=== PATIENT | female | born 1965 | race Hispanic/Latino ===

== ENCOUNTER 2017-11-20 12:24 | Emergency (ER) | payer SELFPAY ==
[2017-11-20] MEDS ORDERED: EPINEPHrine 1 MG/10 ML SYR IV ONE (12:25)
[2017-11-20] MEDS ORDERED: NA CHLORIDE 0.9% 2,000 ML ONE (12:25)
[2017-11-20] MEDS ORDERED: NA CHLORIDE 0.9% 1,000 ML ONE (12:29)
[2017-11-20] MEDS ORDERED: ROCURONIUM 50 MG/5 ML VIAL IV ONE (12:29)
[2017-11-20 12:40] LABS: Absolute Lymphocytes (CBC) 7.2 K/uL (0.7-4.9); Absolute Monocytes 0.4 K/uL (0.1-1.3); Absolute Neutrophil 3.2 K/uL (1.8-8.0); Basophils % 0.9 % (0-1.3); Eosinophils % 0.9 % (0-4.4); Hematocrit 33.8 % (36.0-45.0); Lymphocytes % 65.1 % (15.3-44.8); MCH 22.7 pg (27.0-35.0); MCV 82.8 fL (80-100); MPV 8.7 fL (7.6-11.3); RBC Red Blood Cell Count 4.08 M/uL (3.86-4.86)
[2017-11-20 12:50] LABS: Protime INR 1.27
[2017-11-20] MEDS ORDERED: PROPOFOL IV ONE (13:02)
[2017-11-20 13:33] LABS: Anisocytosis 1+; Blood Morphology Comment NOTED (NOT SEEN); Burr Cells 1+; Platelet Estimate DECR
[2017-11-20 13:34] LABS: Rouleau NOTED; Sodium Level 150 mmol/L (136-145)
[2017-11-20 13:38] LABS: BUN Blood Urea Nitrogen 8 mg/dL (7-18); Bicarbonate 19 mmol/L (21-32); Glucose Level 266 mg/dL (74-106)
[2017-11-20 13:40] LABS: Alkaline Phosphatase 91 U/L (45-117); Bilirubin Direct < 0.1 mg/dL (0-0.2); Bilirubin Total 0.2 mg/dL (0.2-1.0)
[2017-11-20 13:42] LABS: Albumin 2.4 g/dL (3.4-5.0); CKMB Creatine Kinase MB 5.2 ng/mL (0.3-3.6); Creatine Phosphokinase 422 U/L (26-192); Magnesium 3.5 mg/dL (1.8-2.4); NT PRO-BNP 396 pg/mL (<125)
[2017-11-20 13:44] LABS: Potassium 6.2 mmol/L (3.5-5.1)
[2017-11-20 13:45] LABS: ALT/SGPT 946 U/L (12-78); AST/SGOT 1765 U/L (15-37)
--- NOTE | 2017-11-20 14:40 | EDPHYS ---
Physician Documentation [facility] Name: Eva Turk Age: 52 yrs Sex: Female : 1965 Arrival Date: 11/20/2017 Time: 12:24 Bed 4 Private MD: ED Physician Se Mckeon HPI: 11/20 14:34 This 52 yrs old Female presents to ER via EMS with complaints of CPR. rn 14:34 Preceding the arrest, the patient was found down. The arrest occurred. Pre-hospital rn course: The arrest was not witnessed by others. Bystanders at the scene performed CPR. ACLS details: Initial rhythm was asystole. The presenting rhythm is asystole. Airway: oral intubation, Medications given by EMS prior to arrival - Response to therapy: continued arrest. The patient has not experienced similar symptoms in the past. 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 Historical: - Allergies: 12:51 Unable to obtain; sv - Home Meds: 12:51 Unable to obtain [Active]; sv - PMHx: 12:51 Thyroid problem; sv - PSHx: 12:51 Unable to obtain; sv - Immunization history:: Adult Immunizations unknown. - Social history:: Smoking status: unknown. - Ebola Screening: : Unable to complete screening because. - Unable to obtain history due to: unresponsive. ROS: 14:34 Unable to obtain ROS due to obtunded state. rn Exam: 14:34 Constitutional: Unresponsive female with auto-compression device on chest Head/Face: rn Normocephalic, atraumatic Eyes: 6mm pupils, equal, unreactive ENT: intubated, no oral trauma Cardiovascular: No spont pulse or cardiac activity Respiratory: coarse bilateral breath sounds with bagging, no spont breaths Abdomen/GI: soft, non-distended Skin: cyanosis hands/feet Neuro: GCS 3, unresponsive Vital Signs: 12:32 Temp 96.8(R); sv 12:51 Pulse 0 MON; sv 12:51 Asystole sv José Miguel Coma Score: 12:51 Eye Response: none(1). Verbal Response: none(1). Motor Response: none(1). Modifying sv Factors: Intubated. Total: 3. Procedures: 14:34 CPR: See CPR flow sheet. Initial patient assessment: unresponsive, intubated, pulses rn present w/ compressions, The presenting cardiac rhythm is asystole. Compressions: began prior to arrival. Meds given: See Meds list. despite ED evaluation and treatment, the patient . CPR was stopped at 12:36. MDM: 12:37 Patient medically screened. rn 12:39 ED course: Time of 12:36, asystole entire time, > 30 min good CPR and atleast 7 rn minutes bystander care, no sign of trauma evident, echo shows no cardiac activity. . 14:34 Differential diagnosis: arrythmia, cardiac arrest, respiratory arrest, traumatic rn injury, asphyxiation. Data reviewed: vital signs, nurses notes. 11/20 12:27 Order name: Basic Metabolic Panel; Complete Time: 13:47 ch 11/20 12:27 Order name: CBC with Diff; Complete Time: 13:47 ch 11/20 12:27 Order name: Ckmb; Complete Time: 13:47 ch 11/20 12:27 Order name: CPK; Complete Time: 13:47 ch 11/20 12:27 Order name: LFT's; Complete Time: 13:47 ch 11/20 12:27 Order name: Magnesium; Complete Time: 13:47 ch 11/20 12:27 Order name: NT PRO-BNP; Complete Time: 13:47 ch 11/20 12:27 Order name: PT-INR; Complete Time: 13:47 ch 11/20 12:27 Order name: Ptt, Activated; Complete Time: 13:47 ch 11/20 12:27 Order name: Troponin (emerg Dept Use Only); Complete Time: 13:47 ch 11/20 13:01 Order name: Manual Differential; Complete Time: 13:47 EDMS 11/20 12:27 Order name: Cardiac monitoring; Complete Time: 13:11 ch 11/20 12:27 Order name: IV Saline Lock; Complete Time: 13:12 ch 11/20 12:27 Order name: Labs collected and sent; Complete Time: 13:12 ch 11/20 12:27 Order name: O2 Per Protocol; Complete Time: 13:12 ch 11/20 12:27 Order name: O2 Sat Monitoring; Complete Time: 13:13 ch Administered Medications: 12:21 Drug: EPINEPHrine 0.1mg/mL 1:10,000 1 mg Route: IVP; Site: left forearm; sv 13:11 Follow up: Response: No adverse reaction sv 12:24 Drug: EPINEPHrine 0.1mg/mL 1:10,000 1 mg Route: IVP; Site: left forearm; sv 13:11 Follow up: Response: No adverse reaction sv 12:26 Drug: EPINEPHrine 0.1mg/mL 1:10,000 1 mg Route: IVP; Site: left forearm; sv 13:10 Follow up: Response: No adverse reaction sv 12:29 Drug: EPINEPHrine 0.1mg/mL 1:10,000 1 mg Route: IVP; Site: left forearm; sv 13:10 Follow up: Response: No adverse reaction sv 12:31 Drug: EPINEPHrine 0.1mg/mL 1:10,000 1 mg Route: IVP; Site: left forearm; sv 13:10 Follow up: Response: No adverse reaction sv 12:33 Drug: EPINEPHrine 0.1mg/mL 1:10,000 1 mg Route: IVP; Site: left forearm; sv 13:10 Follow up: Response: No adverse reaction sv Disposition: 14:34 . rn Disposition: Patient pronounced on 11/20/17 12:36 by Se Mckeon. Impression: Cardiac arrest, cause unspecified. - Released to Physician Relations Specialist. Signatures: Dispatcher [employer] EDAna Maria Lara RN RN Lynne Marshall RN RN Se Mckeon MD MD lead burner apprentice: (The following items were deleted from the chart) 13:08 12:27 Chest Single View+RAD.RAD.[email or web address] ordered. EDPA EDMS 13:12 12:27 EKG - Nurse/Tech ordered. sv 13:13 12:27 Urine Dipstick-Ancillary ordered. sv 14:42 14:39 11/20/2017 14:39 Patient pronounced on 11/20/2017 at 12:36 by Se Mckeon. sv Impression: Cardiac arrest, cause unspecified. Released to Physician Relations Specialist. rn
--- NOTE | 2017-11-20 14:40 | ER ---
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 EMS arrived, CPR was being performed by a bystander and continued by EMS via thumper. Epinephrine 6 mg IVP, Calcium gluconate, Narcan, Sodium bicarbonate, NS 750 mls given en route. BS-[id number]. Orally intubated with size-6.5 and 23 at the lip. Care prior to arrival: Assisted ventilation, Oral intubation, CPR via thumper performed by EMS and is still in progress Medication(s) given: Normal saline infusion, IV initiated. 20 GA, in the left forearm, Glucose check: 347 Oxygen administered. via AMBU bag. Compressions began at 11:55. 12:18 Method Of Arrival: EMS: [facility] sv 12:18 Acuity: KRYSTAL 1 sv 12:36 Transition of care: patient was not received from another setting of care. Onset of sv symptoms was November 20, 2017. Risk Assessment: Do you want to hurt yourself or someone else? Other: unknown. Pt . Initial Sepsis Screen: Does the patient meet any 2 criteria? No. Patient's initial sepsis screen is negative. Does the patient have a suspected source of infection? No. Patient's initial sepsis screen is negative. Historical: - Allergies: 12:51 Unable to obtain; sv - Home Meds: 12:51 Unable to obtain [Active]; sv - PMHx: 12:51 Thyroid problem; sv - PSHx: 12:51 Unable to obtain; sv - Immunization history:: Adult Immunizations unknown. - Social history:: Smoking status: unknown. - Ebola Screening: : Unable to complete screening because. - Unable to obtain history due to: unresponsive. Screenin:36 Fall Risk None identified. sv 12:51 Abuse screen: unable to obtain. Nutritional screening: unable to obtain. Tuberculosis sv screening: unable to obtain. Assessment: 12:18 CPR assessment: unresponsive, no respiratory effort, intubated, Ambu ventilation, sv pulses absent w/ compressions. Cardiac rhythm is asystole. General: Appears distressed, unkempt, Behavior is unresponsive. Neuro: Level of Consciousness is unresponsive. EENT: No signs and/or symptoms were reported regarding the EENT system. Cardiovascular: Rhythm is asystole. Derm: Skin is dusky, Scabbed abrasion to the right knee. 12:21 Reassessment: CPR paused, asystole, CPR resumed. sv 12:22 Reassessment: CPR paused, asystole, CPR resumed. sv 12:24 Reassessment: CPR paused, asystole, CPR resumed. sv 12:26 Reassessment: CPR paused, asystole, CPR resumed. sv 12:28 Reassessment: CPR paused, asystole, CPR resumed. sv 12:31 Reassessment: CPR paused, asystole, CPR resumed. sv 12:33 Reassessment: CPR paused, asystole, CPR resumed. sv 12:35 Reassessment: Thumper paused per Dr Mckeon, Ultrasound used by Dr Mckeon to see heart sv activity. 12:36 Reassessment: Time of called by Dr Mckeon. sv 13:45 Reassessment: [facility] called and spoke with Julianna. Case # [id number]. She will sv call back in about an hour for updates. 13:50 Reassessment: Judge Fredi Llamas ordered for pt to go the medical insurance claims specialist in [facility], pt will go to [facility]. Vital Signs: 12:32 Temp 96.8(R); sv 12:51 Pulse 0 MON; sv 12:51 Asystole sv José Miguel Coma Score: 12:51 Eye Response: none(1). Verbal Response: none(1). Motor Response: none(1). Modifying sv Factors: Intubated. Total: 3. ED Course: 12:18 Maintain EMS IV. Dressing intact. Site clean \T\ dry. Gauge \T\ site: 20G left FA. Flushed sv left forearm with 5 ml normal saline. 12:21 Inserted saline lock: 20 gauge in right antecubital area, using aseptic technique. sv ,using aseptic technique. done by Ana Maria Arguello RN. 12:24 Patient arrived in ED. ds1 12:24 Initial lab(s) drawn, by ED staff, sent to lab. done by Dionne [facility]. sv 12:30 Arm band placed on left wrist. sv 12:30 Patient has correct armband on for positive identification. sv 12:37 Se Mckeon MD is Attending Physician. rn 12:41 Lynne Marshall RN is Primary Nurse. sv 12:42 notified lj pd to notify cloth burler to come to er. bd 12:46 Triage completed. sv 13:07 No provider procedures requiring assistance completed. intact. sv 13:11 Manual Differential Sent. sv 14:39 Se Mckeon MD is Pronouncing Provider. rn Administered Medications: 12:21 Drug: EPINEPHrine 0.1mg/mL 1:10,000 1 mg Route: IVP; Site: left forearm; sv 13:11 Follow up: Response: No adverse reaction sv 12:24 Drug: EPINEPHrine 0.1mg/mL 1:10,000 1 mg Route: IVP; Site: left forearm; sv 13:11 Follow up: Response: No adverse reaction sv 12:26 Drug: EPINEPHrine 0.1mg/mL 1:10,000 1 mg Route: IVP; Site: left forearm; sv 13:10 Follow up: Response: No adverse reaction sv 12:29 Drug: EPINEPHrine 0.1mg/mL 1:10,000 1 mg Route: IVP; Site: left forearm; sv 13:10 Follow up: Response: No adverse reaction sv 12:31 Drug: EPINEPHrine 0.1mg/mL 1:10,000 1 mg Route: IVP; Site: left forearm; sv 13:10 Follow up: Response: No adverse reaction sv 12:33 Drug: EPINEPHrine 0.1mg/mL 1:10,000 1 mg Route: IVP; Site: left forearm; sv 13:10 Follow up: Response: No adverse reaction sv Outcome: 12:36 Outcome Patient sv 12:36 Condition: 14:41 Patient : Time of 12:36 Pronounced by Se Mckeon MD Body released to ME sv ME notified 14:41 Instructed on ME 14:42 Patient left the ED. sv Signatures: Tatiana Green bd Lynne Marshall, RN RN sv Yvette Portillo ds1 Se Mckeon MD MD rn
== END 2017-11-20 14:42 ==
LOC: ER 12:24
DX: I46.9 Cardiac arrest, cause unspecified (principal)
CPT/HCPCS: 36415; 80048; 80076; 82550; 82553; 83735; 83880; 84484; 85025; 85610; 85730; 92950; 96374; 99285; J0171; J7030